=== PATIENT | female | born 1985 | race Caucasian/White ===

== ENCOUNTER 2020-10-31 15:22 | Outpatient (CLI) | payer BC ==
[~2020-10-31] VITALS: Ht 167.6 cm; Wt 93.2 kg
[~2020-10-31 15:22] MED LIST: FLEXERIL10 MG PO; LORTAB 5/500 501 TAB PO; NAPROSYN PO; NO HOME MEDICATIONS
--- NOTE | 2020-10-31 15:25 | NUR ---
Presents to L&D, as sent over from office for serial BPs, lab work. Accompanied by significant other.
--- NOTE | 2020-10-31 15:30 | NUR ---
Instructed to keep room quiet, and dim. Verbalizes understanding.
[2020-10-31 15:40] VITALS: BP 144/55; PULSE 79; TEMP 98.1
[2020-10-31 15:50] VITALS: BP 145/84; PULSE 73
[2020-10-31] MEDS ORDERED: PRILOSEC 20MG20 MG PO (15:51)
[2020-10-31] MEDS ORDERED: PNV-DHA1 SGL PO (15:51)
[2020-10-31 16:00] VITALS: BP 137/74; PULSE 71
--- NOTE | 2020-10-31 16:03 | NUR ---
Roles in to discuss plan of care with patient, including if BPs remain stable, will likely send home on bedrest, pending lab results.
[2020-10-31 16:05] LABS: HEMOGLOBIN 10.8 g/dl (12.5-16.0); MEAN CELL VOLUME 85 fl (80.0-100.0); MEAN CORPUSCULAR HEMOGLOBIN 29 pg (27.0-31.0); MEAN CORPUSCULAR HGB CONC 33 g/dl (33.0-37.0); MEAN PLATELET VOLUME 11.1 fl (7.4-10.4); PLATELET COUNT 265 K/mm3 (130-400); RED BLOOD COUNT 3.78 M/mm3 (4.10-5.30); REDCELL DISTRIBUTION WIDTH-CV 13.3 % (11.5-14.5)
[2020-10-31 16:09] LABS: HEMATOCRIT 32.3 % (37.0-47.0)
[2020-10-31 16:10] VITALS: BP 138/86; PULSE 75
[2020-10-31 16:18] LABS: ALBUMIN 3.3 gm/dL (3.5-5.0); BILIRUBIN,TOTAL 0.5 mg/dL (0.0-1.0); CALCIUM 9.3 mg/dL (8.4-10.2); CREATININE, serum 0.66 (0.52-1.25); POTASSIUM 3.9 mmol/L (3.4-5.0); TOTAL PROTEIN 6.4 gm/dL (6.4-8.2)
[2020-10-31 16:20] VITALS: BP 136/83; PULSE 75
--- NOTE | 2020-10-31 16:35 | NUR ---
Discharged to home per wheelchair with pre-eclampsia precautions, and instructed on strict bedrest with exception of bathroom breaks, shower, and simple meal preparation. Instructed not to return to work for duration of . Verbalizes understanding.
[2020-10-31 16:58] LABS: LYMPHOCYTE 13 % (20.0-51.0); NEUTROPHILS 82 % (42.0-75.2)
== END 2020-10-31 16:35 | disposition home or self-care (01) ==
LOC: LDRO 15:22
PROVIDERS: Obstetrics & Gynecology
DX: Z34.93 Encounter for supervision of normal pregnancy, unspecified, third trimester (principal); Z3A.32 32 weeks gestation of pregnancy

== ENCOUNTER 2020-11-13 11:19 | Outpatient (CLI) | payer BC ==
[~2020-11-13] VITALS: Ht 167.6 cm; Wt 94.1 kg
[~2020-11-13 11:19] MED LIST changes: +PNV-DHA1 SGL PO; +PRILOSEC 20MG20 MG PO
[2020-11-13] MEDS ORDERED: TRANDATE 100MG100 MG PO (11:40)
[2020-11-13 11:46] VITALS: BP 153/92; PULSE 75
[2020-11-13 12:00] VITALS: BP 176/104; PULSE 82
--- NOTE | 2020-11-13 12:00 | NUR ---
1125- Pt arrives on unit ambulatory. Sent over from the office for serial BP checks and labs. Pt states she has been feeling "like crap" since last night, shaky and nauseated. 1127- Pt into bed, EFM and TOCO on and tracing. O2 sat monitor applied. Pt denies VB or LOF, states she has had abd tightening but denies them being regular or painful. +FM per Pt. Pt denies YOUNG, RUQ pain, visual disturbances. Assessment completed. POC reviewed and Pt agrees.
[2020-11-13 12:03] VITALS: BP 137/87; PULSE 76
[2020-11-13 12:10] LABS: BASO # 0.1 (0.0-0.2); BASO % 0.4 % (0.0-2.0); EOS # 0.3 (0.0-0.7); EOS % 1.8 % (0-4.0); GRAN % 72.5 % (42.2-75.2); HEMOGLOBIN 11.3 g/dl (12.5-16.0); LYMPH # 2.6 (1.2-3.4); MEAN CELL VOLUME 88 fl (80.0-100.0); MEAN CORPUSCULAR HEMOGLOBIN 29 pg (27.0-31.0); MEAN CORPUSCULAR HGB CONC 32 g/dl (33.0-37.0); MEAN PLATELET VOLUME 10.5 fl (7.4-10.4); MONO # 1.1 (0.1-0.6); MONO % 7.5 % (1.7-9.3); PLATELET COUNT 230 K/mm3 (130-400); RED BLOOD COUNT 3.97 M/mm3 (4.10-5.30); REDCELL DISTRIBUTION WIDTH-CV 14.1 % (11.5-14.5)
[2020-11-13 12:11] LABS: HEMATOCRIT 35.1 % (37.0-47.0)
[2020-11-13 12:16] VITALS: BP 136/86; PULSE 77
[2020-11-13 12:20] LABS: ALBUMIN 2.6 gm/dL (3.5-5.0); BILIRUBIN,TOTAL 0.5 mg/dL (0.0-1.0); CALCIUM 8.4 mg/dL (8.4-10.2); CREATININE, serum 0.72 (0.52-1.25); TOTAL PROTEIN 5.7 gm/dL (6.4-8.2)
[2020-11-13 12:32] VITALS: BP 148/88; PULSE 74
--- NOTE | 2020-11-13 12:45 | NUR ---
1234- Discharge plan discussed, Pt denies questions. EFM and TOCO off. Pt up to change. 1245- Discharge paperwork given and explained. Pt denies questions. Pt ambulates off unit in stable condition.
== END 2020-11-13 12:45 | disposition home or self-care (01) ==
LOC: LDRO 11:19
PROVIDERS: Obstetrics & Gynecology
DX: O13.3 Gestational [pregnancy-induced] hypertension without significant proteinuria, third trimester (principal); Z3A.34 34 weeks gestation of pregnancy